=== PATIENT | female | born 1950 | race Caucasian/White ===

== ENCOUNTER 2018-12-05 18:27 | Emergency (ER) | payer OTHER ==
[2018-12-05 18:39] VITALS: BP 159/87; PULSE 84; TEMP 98.4; BMI 25.7
[2018-12-05] MEDS ORDERED: DIPHTH,PERTUSS(ACELL),TET 0.5 ML DISP.SYRIN IM ONE (18:39)
[2018-12-05] MEDS ORDERED: DIPHTH,PERTUSS(ACELL),TET VAC 0.5 ML VIAL IM ONE (18:44)
--- NOTE | 2018-12-05 18:51 | PDOC ---
Documentation entered by Tien Shea SCRIBE, acting as scribe for Miguel A Arias MD. Miguel A Arias MD: This documentation has been prepared by the Monse costa Nirvannie, SCRIBE, under my direction and personally reviewed by me in its entirety. I confirm that the documentation accurately reflects all work, treatment, procedures, and medical decision making performed by me. History of Present Illness - General Chief Complaint: Injury Stated Complaint: LEFT RING FINGER INJURY Time Seen by Provider: 12/05/18 18:30 History Source: Patient Exam Limitations: No Limitations - History of Present Illness Initial Comments: 12/05/18 18:45 The patient is a 68 year old female, with a significant past medical history of DM and HTN, who presents to the emergency department with, pain to the left ring finger. As per patient, she cut her finger approximately a week ago and today while doing her daily activities something came into contact with the affected area onsetting pain to the finger. Patient is unaware of her last tetanus shot. She denies pain with active or passive movement. She denies itchiness or streaking. She denies recent fevers, chills, headache or dizziness. She denies recent nausea, vomit, diarrhea or constipation. She denies recent dysuria, frequency, urgency or hematuria. She denies recent chest pain or shortness of breath. Allergies: NKDA Past surgical history: None reported. Social history: Nonsmoker. Denies EtOH use and recreational drug use. Primary Care Physician: Dr. Romano Past History - Past Medical History Allergies/Adverse Reactions: Allergies Allergy/AdvReac Type Severity Reaction Status Date / Time No Known Allergies Allergy Verified 12/05/18 18:30 Home Medications: Ambulatory Orders Alpha Lipoic Acid 600 mg PO DAILY capsule 12/25/14 Ascorbic Acid [Vitamin C] 500 mg PO DAILY tablet 12/25/14 Calcium Carbonate [Coral Calcium] 390 mg PO DAILY tablet 12/25/14 Cholecalciferol (Vitamin D3) [Vitamin D3] 1,000 unit PO DAILY tablet 12/25/14 Ginkgo Biloba [place] Extract [Ginkgo Biloba] 120 mg PO DAILY capsule 12/25/14 Multivitamin [Daily Vitamin] 1 each PO DAILY tablet 12/25/14 Atenolol [Tenormin] 6.25 mg PO BID 12/05/18 Levothyroxine [Synthroid -] 125 mcg PO DAILY 12/05/18 Losartan Potassium [Cozaar] 100 mg PO DAILY 12/05/18 Metformin HCl [Glucophage] 500 mg PO TID 12/05/18 COPD: No Diabetes: Yes HTN: Yes Seizures: Yes - Suicide/Smoking/Psychosocial Hx Smoking History: Never smoked Hx Alcohol Use: No Drug/Substance Use Hx: No Review of Systems - Review of Systems Able to Perform ROS?: Yes Comments:: 12/05/18 18:46 CONSTITUTIONAL: No reported: Fever, Chills, Diaphoresis, Generalized Weakness, Malaise, Loss of Appetite MUSCULOSKELETAL: Present: Pain to the left ring finger. No reported: Joint Swelling, Back pain, Neck Pain SKIN: No reported: Rash, Itching, Pallor HEMEATOLOGIC/IMMUNOLOGIC: No reported: Easy Bleeding, Easy Bruising, Lymphadenopathy, Frequent infections All Other Systems: Reviewed and Negative *Physical Exam - Vital Signs Last Vital Signs Temp Pulse Resp BP Pulse Ox 98.4 F 84 16 159/87 98 12/05/18 18:27 12/05/18 18:27 12/05/18 18:27 12/05/18 18:27 12/05/18 18:27 - Physical Exam Comments: 12/05/18 18:49 Skin: approx 2x3cm area of healing skin avulsion over the distal tip of L ring finger, no erythema, induration, warmth, fluctuance, discahrge Medical Decision Making - Medical Decision Making 12/05/18 18:50 healing skin avululsino pt notes pain is only present if she its it directly otherwise no pain no warmth,redness/induration suspect natural course of healing. no signs of infection heriberto ldc with supportive care and topical bacitracin updated pts tetanus I discussed the physical exam findings, ancillary test results and final diagnoses with the patient. I answered all of the patient's questions. The patient was satisfied with the care received and felt comfortable with the discharge plan and treatment plan. The patient will call their primary care physician within 24 hours to arrange follow-up and will return to the Emergency Department with any new, persistent or worsening symptoms. *DC/Admit/Observation/Transfer Diagnosis at time of Disposition: Avulsion, skin - Discharge Dispostion Disposition: HOME Condition at time of disposition: Stable Decision to Admit order: No - Referrals Referrals: Foreign Romano MD [Primary Care Provider] - - Patient Instructions Additional Instructions: Keep the area clean and dry Apply bacitracin to the wound twice daily If you see redness, swelling, warmth, return to the emergency department. Print Language: LAO - Post Discharge Activity
== END 2018-12-05 19:02 | disposition home or self-care (01) ==
LOC: FER 18:27
PROC: 3E0234Z Introduction of Serum, Toxoid and Vaccine into Muscle, Percutaneous Approach (ICD-10-PCS; principal; 2018-12-05)
DX: S61.205A Unspecified open wound of left ring finger without damage to nail, initial encounter (principal); W22.8XXA Striking against or struck by other objects, initial encounter; Y93.89 Activity, other specified; Y92.89 Other specified places as the place of occurrence of the external cause; Y99.8 Other external cause status; I10 Essential (primary) hypertension; E11.9 Type 2 diabetes mellitus without complications; Z79.84 Long term (current) use of oral hypoglycemic drugs; Z86.69 Personal history of other diseases of the nervous system and sense organs
CPT/HCPCS: 99282-25